=== PATIENT | female | born 1995 | race Two or more races ===

== ENCOUNTER 2017-11-26 01:20 | Observation (INO) | payer MEDICAID ==
[~2017-11-26] VITALS: Ht 162.6 cm; Wt 78.5 kg
[2017-11-26] MEDS ORDERED: PNV1TABL50 MT (02:03)
== END 2017-11-26 02:08 | disposition home or self-care (01) ==
LOC: L&D 01:20
PROVIDERS: ADMIT Specialist; ATTEND Specialist
DX: O62.9 Abnormality of forces of labor, unspecified (principal); Z3A.39 39 weeks gestation of pregnancy
CPT/HCPCS: 99281; G0378